=== PATIENT | female | born 1980 | race Caucasian/White ===

== ENCOUNTER → 2023-09-01 09:45 | Outpatient (BNVA) | payer MEDICAID, SELFPAY | PROVIDERS: PCP Family Medicine; Visit Provider Family Medicine | DX: I10 Essential (primary) hypertension (principal); G43.909 Migraine, unspecified, not intractable, without status migrainosus | CPT/HCPCS: 80053; 80061 ==

== ENCOUNTER 2024-07-21 17:12 | Emergency (ER) | payer MEDICAID, SELFPAY ==
[2024-07-21 17:16] VITALS: BP 136/97; PULSE 79; RESP 16; TEMP 36.6; O2SAT 98
--- NOTE | 2024-07-21 17:55 | ED_ITS ---
HPI - Skin/Abscess/Foreign Bdy General: Chief complaint: Skin/Abscess/Foreign Body Stated complaint: itchy rash all over body Time Seen by Provider: 07/21/24 17:24 Source: patient Mode of arrival: ambulatory Limitations: no limitations History of Present Illness: Patient is a 44-year-old female presents to ED today for evaluation of pruritic rash that she began noticing yesterday. She states the rash began on her anterior chest and has since spread to her back and neck. States she was doing some drywalling yesterday and is not sure if that contributed. No other individuals in the home with similar rashes. No plant exposure. No new chemical/household exposures that she is aware of. No systemic symptoms. Has not tried anything at home for the itching. MD complaint: rash Onset (ago): day(s) (yesterday) Tetanus up to date: yes Location: neck, chest and back Severity: mild Quality: pruritic Relieving factors: none Exacerbating factors: none Context: none Associated symptoms: Reports itching; Deny chills, fever(s), nausea or vomiting Treatments prior to arrival: none Related Data Previous Rx's Medication Instructions Recorded prednisone 10 mg tablet 10 mg PO DAILY 7 days #27 tabs 07/21/24 Allergies Allergy/AdvReac Type Severity Reaction Status Date / Time No Known Allergies Allergy Verified 07/21/24 17:20 Review of Systems Const: Denies: fever(s), chills, body aches, fatigue or malaise Eyes: Denies: eye discharge ENMT: Denies: throat pain, odynophagia or nasal congestion Card: Denies: chest pain Resp: Denies: dyspnea GI: Denies: abdominal pain, nausea, vomiting or diarrhea Musc: Denies: neck pain, back pain, extremity pain, joint pain or joint swelling Skin/Breast: Reports: rash and pruritus Neuro: Denies: headache(s), numbness in extremities, weakness in extremities or sensory changes PFSH ED PFSH: Medical History Herpes zoster 09/2023 Hypertension Surgical History No pertinent past surgical history Family History Denies family history of Clotting disorder Anesthesia complication Bleeding disorder Social History Smoking and tobacco/nicotine status: never used tobacco/nicotine Alcohol intake: never Substance/Drug Use: never Female Reproductive History: Date of last menstrual period: 07/18/24 Physical Exam Const: COMMON NORMALS: no acute distress, average body habitus, patient oriented x3, no limitations, healthy appearing, alert and well nourished GENERAL APPEARANCE: cooperative HENMT: FACE & SINUS: normal facial exam Eye: GENERAL EYE: appearance normal, both eyes and all related structures Neck/C-Spine: COMMON NORMALS: no lymphadenopathy Resp: COMMON NORMALS: normal respiratory effort Extremity: GENERAL: Yes normal exam except as noted Neuro: COMMON NORMALS: patient oriented x3 SENSORIUM/ORIENTATION: Yes alert Skin: NARRATIVE SKIN EXAM: erythematous papular rash to anterior central chest and under breast line into back and onto neck RASHES: rashes noted Course Vital Signs: Vital signs: Vital Signs Temperature 97.9 F 07/21/24 17:16 Pulse Rate 79 07/21/24 17:16 Respiratory Rate 16 07/21/24 17:16 Blood Pressure 136/97 07/21/24 17:16 Pulse Oximetry 98 07/21/24 17:16 MDM - Skin/Abscess/Foreign Bdy Medicial Decision Making Rash appears benign. Will have her start taking antihistamines to help with the itching and place her on a steroid taper. She can follow-up with primary care next week if symptoms do not seem to be improving. Medical Records I reviewed the patient's medical records. No radiology studies performed this visit Discharge Plan Discharge Patient Disposition: Home Clinical Impression: Pruritic rash Condition: Stable Prescriptions: New prednisone 10 mg tablet 10 mg PO DAILY 7 Days Qty: 27 0RF Rx Instructions: 6 tabs on days 1-2, 5 tabs on days 3, 4 tabs on day 4, 3 tabs on day 5, 2 tabs on day 6, 1 tab on day 7 Discharge Orders: Discharge ED (Routine); Ordered 07/21/24 Ordered By: Merlyn Delgado Referrals: Ashu Denny MD [Primary Care Provider] - Patient Instructions: Acute Rash (ED) Activity Restrictions/Additional Instructions: As we discussed, you can begin doing 50 mg of Benadryl every 4-6 hours to help with itching. You may also do topical Benadryl as well as topical hydrocorti sone cream. These both are available [id number]. Please follow-up with your primary care provider next week if symptoms do not seem to be improving. Coding Level of Care Code ED Trim Stencil Maker for Hemal Dumont
[2024-07-21] MEDS: hydrocortisone 100 mg/2 mL SDV 75 MG IM (18:08)
[2024-07-21 18:40] VITALS: BP 132/75; PULSE 74; RESP 16; O2SAT 99
== END 2024-07-21 18:45 | disposition home or self-care (01) ==
PROVIDERS: Emergency Provider Physician Assistant; PCP Family Medicine
DX: L29.9 Pruritus, unspecified (principal); I10 Essential (primary) hypertension
CPT/HCPCS: 96372; 99284; J1720

== ENCOUNTER 2024-08-01 14:58 | Emergency (ER) | payer MEDICAID, SELFPAY ==
--- NOTE | 2024-08-01 15:00 | XRR_ITS ---
PROCEDURE INFORMATION: Exam: XR Right Hand Exam date and time: 08/01/2024 3:28 PM Age: 44 years old Clinical indication: Injury or trauma; Other: Not specified; Blunt trauma (contusions or hematomas); Hand; Right TECHNIQUE: Imaging protocol: Radiologic exam of the right hand. Views: 3 or more views. COMPARISON: No relevant prior studies available. FINDINGS: Bones/joints: No acute fracture or malalignment. No worrisome lytic or blastic osseous lesion. No appreciable cortical erosion or periosteal reaction. Joint spaces are preserved. No joint effusion. Soft tissues: No soft tissue abnormality. XR/XR hand RT min 3V* [id number] IMPRESSION: No acute fracture or malaligment.
[2024-08-01 15:11] VITALS: BP 181/113; PULSE 81; RESP 16; TEMP 36.5; O2SAT 99
--- NOTE | 2024-08-01 17:01 | W.ED.EXTPRO ---
HPI - Extremity Problem General: Chief complaint: Extremity Injury, Upper Stated complaint: right hand injury Time Seen by Provider: 08/01/24 15:40 Source: patient Mode of arrival: ambulatory Limitations: no limitations History of Present Illness: Patient is a 44-year-old female presenting to the emergency department with injury to right ring finger prior to arrival. States she was chopping wood, smashed her finger between 2 pieces of metal. There is small laceration noted to palmar aspect, and she is reporting pain and numbness distally to that finger. Also is reporting issue with her nail. Unknown if her tetanus is up-to-date, though she believes she has had it in the past few years and will confirm this with her primary care provider upon discharge. No other concerning symptoms or injuries reported at this time. MD Complaint: extremity pain Onset (ago): minute(s) Pain Consistency: constant Location: right and upper extremity Associated symptoms: Deny chest pain, fever(s) or rash Related Data Previous Rx's Medication Instructions Recorded cephalexin 500 mg capsule 500 mg PO BID 5 days #10 caps 08/01/24 Allergies Allergy/AdvReac Type Severity Reaction Status Date / Time No Known Allergies Allergy Verified 08/01/24 15:16 Review of Systems General: Reports: 10 or more systems reviewed and unremarkable except in HPI and below Const: Denies: fever(s) or chills Card: Denies: chest pain Resp: Denies: dyspnea or productive cough GI: Denies: abdominal pain, nausea, vomiting or diarrhea : Denies: flank pain Musc: Reports: extremity pain (Right ring finger); Denies: neck pain, back pain, extremity swelling, joint pain, joint swelling, joint redness, joint warmth, limited range of motion or muscle weakness Skin/Breast: Reports: new lesions (Finger lac); Denies: rash Neuro: Reports: numbness in extremities (Distal right ring finger); Denies: headache(s) or weakness in extremities PFSH ED PFSH: Medical History Herpes zoster 09/2023 Hypertension Surgical History No pertinent past surgical history Family History Denies family history of Clotting disorder Anesthesia complication Bleeding disorder Social History Smoking and tobacco/nicotine status: never used tobacco/nicotine Alcohol intake: never Substance/Drug Use: never Female Reproductive History: Date of last menstrual period: 08/01/24 Physical Exam Const: COMMON NORMALS: no acute distress, patient oriented x3, no limitations, healthy appearing, alert and well nourished HENMT: COMMON NORMALS: normocephalic and atraumatic HEAD & SCALP: normocephalic and atraumatic Neck/C-Spine: COMMON NORMALS: full ROM, supple and no meningeal signs Resp: COMMON NORMALS: normal respiratory effort, No use of accessory muscles and clear to auscultation bilaterally AUSCULTATION: clear to auscultation bilaterally Cardio: COMMON NORMALS: regular rate and regular rhythm RATE: regular rate RHYTHM: regular rhythm Extremity: COMMON NORMALS: capillary refill normal, no joint enlargement and no clubbing, cyanosis or edema NARRATIVE EXTREMITY EXAM: Tenderness to palpation distally at the right ring finger. There does appear to be injury to the nail, however there is no avulsion or laceration through this. Pain with range of motion, worse with flexion and improved with extension. No obvious deformity appreciated. Neuro: COMMON NORMALS: patient oriented x3, moves all extremities, no focal motor deficits and no sensory deficits noted SENSORIUM/ORIENTATION: Yes alert MENINGEAL SIGNS: Yes no meningeal signs Skin: NARRATIVE SKIN EXAM: There is a very small, superficial skin tear to the finger pad of the right ring finger, no active bleeding or contamination. Course Vital Signs: Vital signs: Vital Signs Temperature 97.7 F 08/01/24 15:11 Pulse Rate 81 08/01/24 15:11 Respiratory Rate 16 08/01/24 15:11 Blood Pressure 181/113 08/01/24 15:11 Pulse Oximetry 99 08/01/24 15:11 Oxygen Delivery Me thod Room Air 08/01/24 15:11 MDM - Extremity (Nontraumatic) Medical Decision Making Patient arrived with finger injury. X-ray did not demonstrate any acute findings. Physical exam unremarkable aside from reproducible pain, pain with range of motion, and small skin tear to the finger pad that did not need repair at this time. However due to the open wound, discussed wound care but also will prescribe antibiotics prophylactically. Instructed patient to use lake tape, apply ice, take Tylenol and ibuprofen at home for pain. She is to return with any new or worsening, and will follow-up with her primary care provider early next week, specifically to discuss if she needs her tetanus updated. Patient discharged home at this time. Lab Data Radiology Impressions Hand X-Ray 08/01/24 15:00 IMPRESSION: No acute fracture or malaligment. All radiology interpretation(s) finalized by discharge Discharge Plan Discharge Patient Disposition: Home Clinical Impression: Contusion of finger, Finger laceration Condition: Stable Prescriptions: New cephalexin 500 mg capsule 500 mg PO BID 5 Days Qty: 10 0RF Discharge Orders: Discharge ED (Routine); Ordered 08/01/24 Ordered By: Gilbert Barclay Referrals: Ashu Denny MD [Primary Care Provider] - Discharge Diet: Usual diet Discharge Activity: Increase activity as tolerated Patient Instructions: Finger Laceration (ED) Activity Restrictions/Additional Instructions: Take antibiotics. Lake tape as discussed. Ice to the finger for added relief. Take Tylenol and ibuprofen at home. If you have any severe worsening of pain or continue to have loss of feeling, please follow-up with primary care provider for reevaluation. Also follow-up for tetanus if indeed it has been greater than 5 years. Coding Level of Care Code ED Benefits Assistant for Hemal Dumont
== END 2024-08-01 17:45 | disposition home or self-care (01) ==
PROVIDERS: Emergency Provider Physician Assistant; PCP Family Medicine
DX: S60.141A Contusion of right ring finger with damage to nail, initial encounter (principal); S61.214A Laceration without foreign body of right ring finger without damage to nail, initial encounter; I10 Essential (primary) hypertension; W23.0XXA Caught, crushed, jammed, or pinched between moving objects, initial encounter
CPT/HCPCS: 73130; 99283

== ENCOUNTER → 2024-08-14 10:20 | Outpatient (BNVA) | payer MEDICAID, SELFPAY | PROVIDERS: PCP Family Medicine; Visit Provider Family Medicine | DX: Z00.00 Encounter for general adult medical examination without abnormal findings (principal); Z78.9 Other specified health status | CPT/HCPCS: 87624 ==

== ENCOUNTER 2024-08-22 10:57 | Outpatient (CLI) | payer MEDICAID, SELFPAY ==
--- NOTE | 2024-08-22 11:00 | MM_ITS ---
WS: [email or web address] VIEWS: MLO and CC views both breasts. 3D digital tomosynthesis is also included in this exam. Baseline study Findings: There are scattered areas of fibroglandular density. Questionable area of architectural distortion in the upper outer quadrant of the RIGHT breast. Compre ssion spot images and regional ultrasound would be indicated for further work-up. 90 degree lateral v iew of the RIGHT breast also recommended. The LEFT breast is unremarkable. MM/MM scr BI tomosynthesis [id number] Impression: BI-RADS: 0 - Incomplete: Need additional imaging evaluation. FOLLOW-UP: Need Additional Imaging This mammogram was also analyzed by the Computer Aided Detection System R2 Imag e Programming Engineer.
== END 2024-08-22 10:58 | disposition home or self-care (01) ==
LOC: MOBLMAM 10:59
PROVIDERS: PCP Family Medicine; Visit Provider Family Medicine
DX: Z12.31 Encounter for screening mammogram for malignant neoplasm of breast (principal); R92.323 Mammographic fibroglandular density, bilateral breasts; N63.11 Unspecified lump in the right breast, upper outer quadrant
CPT/HCPCS: 77063; 77067

== ENCOUNTER 2024-09-19 06:28 | Day surgery (SDC) | payer MEDICAID, SELFPAY ==
[2024-09-19 06:37] VITALS: BMI 36.0
[2024-09-19 06:38] VITALS: BP 141/72; PULSE 83; RESP 18; TEMP 36.1; O2SAT 98
[2024-09-19] MEDS: sodium chloride 0.9% 1,000 ML 30 ML IV (06:50)
--- NOTE | 2024-09-19 07:07 | ANES.PREANE2 ---
Pre-Anesthetic Assessment Height/Weight: Height 1.63 m Weight 95.254 kg Temp Pulse Resp BP Pulse Ox O2 Del Method 97 F L 83 18 141/72 98 Room Air 09/19/24 06:38 09/19/24 06:38 09/19/24 06:38 09/19/24 06:38 09/19/24 06:38 09/19/24 06:38 Operation Date: 09/19/24 07:30 Proposed Procedures p Colonoscopy 96099, G0105, Z80.0, Z12.11(Not Applicable) - Maged Mazariegos DO Familial anesthetic complications: none Was Beta John taken within 24 hours: N/A Was Clonidine taken within 24 hours: N/A Last intake: Intake Last Liquid Date 09/18/24 Last Liquid Time 23:00 Last Solid Date 09/17/24 Last Solid Time 18:30 Social No alcohol and No tobacco Exam alert, oriented x 3, clear to auscultation bilaterally and regular rate & rhythm Airway Mallampati: Class I Dentition: full CV/HEM Hypertension Metabolic Morbid Obesity Anesthetic Plan ASA status: 2 Anesthesia: MAC Risk of > 500 ml blood loss (7ml/kg in children): No Medications/Allergies Home Medications Medication Instructions Recorded Confirmed Last Taken Type No Known Home Medications 08/14/24 09/19/24 Unknown History Allergies Allergy/AdvReac Type Severity Reaction Status Date / Time No Known Allergies Allergy Verified 08/23/24 08:08 Current Medications Generic Name Dose Route Start Last Admin Trade Name Freq PRN Reason Stop Dose Admin Sodium Chloride 1,000 mls @ 30 mls/hr 09/19/24 06:45 09/19/24 06:50 Sodium Chloride 0.9% IV 09/20/24 06:44 30 mls/hr .Q24H FANTA Administration PFSH Anesthesia Medical History Family history of colon cancer Herpes zoster 09/2023 Hypertension Surgical History No pertinent past surgical history Family History Denies family history of Clotting disorder Anesthesia complication Bleeding disorder Social History Smoking and tobacco/nicotine status: never used tobacco/nicotine Alcohol intake: never Substance/Drug Use: never Data Anesthesia Cardiac Studies: No Data to Display
[2024-09-19 07:17] LABS: OR HCG Qualitative Urine Negative (Negative)
--- NOTE | 2024-09-19 07:28 | W.PM.OPSUD ---
Surgery/Procedure H&P Update DATE OF PROCEDURE: September 19, 2024 DATE H&P PERFORMED: 08/23/24 H&P UPDATE INFORMATION: I have reviewed H&P completed within last 30 days, I have examined patient prior to procedure and No changes to prior documentation PLANNED PROCEDURE: Operation Date: 09/19/24 07:30 Proposed Procedures p Colonoscopy 80799, G0105, Z80.0, Z12.11(Not Applicable) - Maged Mazariegos,
[2024-09-19 07:51] VITALS: BP 123/89; PULSE 85; RESP 14; TEMP 36.2; O2SAT 99
[2024-09-19 08:00] VITALS: BP 132/94; PULSE 77; RESP 18; O2SAT 99
--- NOTE | 2024-09-19 08:25 | ANE.PACU2 ---
Inpatient post-anesthesia follow up: Airway intact: Yes Vital signs: Temperature 97.1 F Pulse Rate 77 Respiratory Rate 18 Blood Pressure 132/94 Pulse Oximetry 99 Oxygen Delivery Me thod Room Air Oxygen Flow Rate 4 Fraction of Inspir ed Oxygen Hydration adequate: Yes Nausea and vomiting: No Pain level: 1 Mental status: Baseline
== END 2024-09-19 08:27 | disposition home or self-care (01) ==
PROVIDERS: Anesthesiology; PCP Family Medicine; Visit Provider Surgery
PROC: 0DJD8ZZ Inspection of Lower Intestinal Tract, Via Natural or Artificial Opening Endoscopic (ICD-10-PCS; CPT 45378; principal; 2024-09-19 07:30)
DX: Z12.11 Encounter for screening for malignant neoplasm of colon (principal); Z80.0 Family history of malignant neoplasm of digestive organs; K63.5 Polyp of colon; I10 Essential (primary) hypertension; E66.01 Morbid (severe) obesity due to excess calories; Z68.36 Body mass index [BMI] 36.0-36.9, adult
CPT/HCPCS: 45385; 81025; 88305; J2704; J3490; J7030

== ENCOUNTER 2024-09-20 09:18 | Outpatient (CLI) | payer MEDICAID, SELFPAY ==
--- NOTE | 2024-09-20 09:21 | US_ITS ---
WS: [email or web address] Exam: US breast LT limited* [id number] Date/Time of Exam: 09/20/2024 10:02 AM Reason For Exam: ABNORMAL MAMMOGRAM Regional ultrasound of the upper outer quadrant of the RIGHT breast is performed. There is no sign of solid nodule or mass. No cysts were noted in this region. US/US breast LT limited* [id number] IMPRESSION: 1. No suspicious ultrasound finding in the upper outer quadrant of the RIGHT br east.
--- NOTE | 2024-09-20 09:30 | MM_ITS ---
WS: [email or web address] VIEWS: MLO, CC, and ML views RIGHT breast only. 3D digital tomosynthesis is also included in this ex am. Comparison made with prior exam of 08/22/2024.. Findings: There are scattered areas of fibroglandular density. Compression spot images of the upper outer quadrant of the RIGHT breast show no definite discrete mas s, tumor calcification or architectural distortion. MM/MM diag RT tomosynthesis [id number] Impression: BI-RADS: 0 - Incomplete: Need additional imaging evaluation. FOLLOW-UP: Need Additional Imaging This mammogram was also analyzed by the Computer Aided Detection System R2 Imag e Fire Alarm Technician.
== END 2024-09-20 09:19 | disposition home or self-care (01) ==
LOC: RAD 09:19
PROVIDERS: PCP Family Medicine; Visit Provider Family Medicine
DX: R92.8 Other abnormal and inconclusive findings on diagnostic imaging of breast (principal); R92.323 Mammographic fibroglandular density, bilateral breasts
CPT/HCPCS: 76642; 77061; G0279

== ENCOUNTER → 2025-07-11 08:28 | Outpatient (BNVA) | payer MEDICAID, SELFPAY | PROVIDERS: PCP Family Medicine; Visit Provider Family Medicine | DX: I10 Essential (primary) hypertension (principal); N95.9 Unspecified menopausal and perimenopausal disorder | CPT/HCPCS: 80053; 82672; 84144; 84443; 85025; 86140 ==